=== PATIENT | male | born 1945 | race Caucasian/White ===

== ENCOUNTER 2024-06-12 16:50 | Emergency (ER) | payer MEDICARE ==
--- NOTE | 2024-06-12 18:02 | ED ---
Psych HPI - General Source: patient, family Mode of arrival: ambulatory <TwinDavid - Last Filed: 06/12/24 17:59> - General Source: patient, family, RN notes reviewed Mode of arrival: ambulatory Limitations: no limitations <Jeffery Rodriguez - Last Filed: 06/12/24 19:54> - General Chief Complaint: Psychiatric Symptoms Stated Complaint: Mental Health Time Seen by Provider: 06/12/24 17:45 - History of Present Illness Initial Comments: Quick note: This is a 78-year-old male presenting with for worsening mood change and increased agitation x 1 week. states patient has been taking Celexa for several months, stating his mood has worsened significantly over the past week. states patient has history of Alzheimer's. (David Murcia) Patient is a 78-year-old male present to the emergency department with with concerns for agitation. Patient has known dementia and Alzheimer's. Patient has been more agitated recently. Patient was started on Celexa around 4 weeks ago and it seemed to be working well for 2 to 3 weeks however symptoms have worsened for the past month. Patient denies suicidal homicidal thoughts. (Jeffery Rodriguez) - Related Data Home Medications Medication Instructions Recorded Confirmed Cetirizine HCl 10 mg PO DAILY 06/12/24 06/12/24 Citalopram Hydrobromide [CeleXA] 20 mg PO DAILY 06/12/24 06/12/24 Donepezil 23mg 23 mg PO HS 06/12/24 06/12/24 Losartan [Cozaar] 25 mg PO DAILY 06/12/24 06/12/24 Melatonin 5 mg PO HS 06/12/24 06/12/24 Memantine [Namenda] 10 mg PO BID 06/12/24 06/12/24 Metoprolol Succinate (ER) [Toprol 50 mg PO DAILY 06/12/24 06/12/24 Xl] Mirabegron [Myrbetriq] 50 mg PO DAILY 06/12/24 06/12/24 Omeprazole 20 mg PO DAILY 06/12/24 06/12/24 Spironolactone [Aldactone] 25 mg PO DAILY 06/12/24 06/12/24 Warfarin [Coumadin] 1.25 mg PO MOFR 06/12/24 06/12/24 Warfarin [Coumadin] 2.5 mg PO SUTUWETHSA 06/12/24 06/12/24 Allergies Allergy/AdvReac Type Severity Reaction Status Date / Time No Known Allergies Allergy Verified 06/12/24 18:47 Review of Systems ROS Other: All systems not noted in ROS Statement are negative. <David Murcia - Last Filed: 06/12/24 17:59> ROS Other: All systems not noted in ROS Statement are negative. Constitutional: Denies: fever Eyes: Denies: eye pain ENT: Denies: ear pain Respiratory: Denies: dyspnea Cardiovascular: Denies: chest pain Psychiatric: Reports: as per HPI. Denies: homicidal thoughts, suicidal thoughts <Jeffery Rodriguez - Last Filed: 06/12/24 19:54> ROS Statement: Those systems with pertinent positive or pertinent negative responses have been documented in the HPI. Past Medical History Past Medical History: Atrial Fibrillation, Dementia, Diabetes Mellitus, Hypert ension Additional Past Medical History / Comment(s): alzheimers, hernias, Past Surgical History: Pacemaker Additional Past Surgical History / Comment(s): open heart surgery, abdominal tansversal, 2 hernia repair, knee replacement, Past Psychological History: No Psychological Hx Reported Smoking Status: Former smoker Past Alcohol Use History: None Reported Past Drug Use History: Marijuana <David Murcia - Last Filed: 06/12/24 17:59> General Exam Limitations: no limitations <David Murcia - Last Filed: 06/12/24 17:59> Limitations: no limitations General appearance: alert, in no apparent distress Head exam: Present: normocephalic Eye exam: Present: normal appearance Neck exam: Present: normal inspection Respiratory exam: Present: normal lung sounds bilaterally Cardiovascular Exam: Present: regular rate, normal rhythm GI/Abdominal exam: Present: soft. Absent: tenderness Extremities exam: Present: normal inspection Neurological exam: Present: alert. Absent: motor sensory deficit Psychiatric exam: Present: normal affect, normal mood Skin exam: Present: normal color <Jeffery Rodriguez - Last Filed: 06/12/24 19:54> - General Exam Comments Initial Comments: Quick note physical exam: Patient awake and alert. No obvious signs of distress. (David Murcia) Course Vital Signs 06/12/24 17:09 Temperature 97.9 F Pulse Rate 90 Respiratory 18 Rate Blood Pressure 121/75 O2 Sat by Pulse 98 Oximetry Medical Decision Making - Lab Data Result diagrams: 06/12/24 18:50 06/12/24 18:50 <Jeffery Rodriguez - Last Filed: 06/12/24 19:54> - Medical Decision Making Was pt. sent in by a medical professional or institution (, [facility], REGISTERED MEDICAL TRANSCRIPTIONIST, urgent care, hospital, or snf...) When possible be specific @ -No Did you speak to anyone other than the patient for history (EMS, parent, family, police, friend...)? What history was obtained from this source @ - is present and helps provide history as patient is unable to provide this Did you review nursing and triage notes (agree or disagree)? Why? @ -I reviewed and agree with nursing and triage notes Were old charts reviewed (outside hosp., previous admission, EMS record, old EKG, old radiological studies, urgent care reports/EKG's, snf records)? Report findings @ -No old charts were reviewed Differential Diagnosis (chest pain, altered mental status, abdominal pain women, abdominal pain men, vaginal bleeding, weakness, fever, dyspnea, syncope, headache, dizziness, GI bleed, back pain, seizure, CVA, palpatations, mental health, musculoskeletal)? @ -Differential Mental Health Depression, anxiety, bipolar, psychosis, schizophrenia, borderline personality, situational depression, adjustment disorder, behavioral disorder, brain tumor, malingering, substance abuse, encephalopathy, medication reaction, dementia, hypothyroidism, degenerative neurologic disorder, lupus.... This is not meant to be all-inclusive list EKG interpreted by me (3pts min.). @ -As above X-rays interpreted by me (1pt min.). @ -None done CT interpreted by me (1pt min.). @ -None done U/S interpreted by me (1pt. min.). @ -None done What testing was considered but not performed or refused? (CT, X-rays, U/S, la bs)? Why? @ -None What meds were considered but not given or refused? Why? @ -None Did you discuss the management of the patient with other professionals (professionals i.e. , [facility], REGISTERED MEDICAL TRANSCRIPTIONIST, lab, RT, psych nurse, social worker delinquency prevention, timber grader, teacher, records officer, patient case coordinator)? Give summary @ -Case was discussed with psychiatric nurse with plans for transfer for psychiatric admission Was smoking cessation discussed for >3mins.? @ -No Was critical care preformed (if so, how long)? @ -No Were there social determinants of health that impacted care today? How? (Homelessness, low income, unemployed, alcoholism, drug addiction, transportation, low edu. Level, literacy, decrease access to med. care, usp, rehab)? @ -No Was there de-escalation of care discussed even if they declined (Discuss DNR or withdrawal of care, Hospice)? DNR status @ -No What co-morbidities impacted this encounter? (DM, HTN, Smoking, COPD, CAD, Cancer, CVA, ARF, Chemo, Hep., AIDS, mental health diagnosis, sleep apnea, m orbid obesity)? @ -History of dementia Alzheimer's Was patient admitted / discharged? Hospital course, mention meds given and route, prescriptions, significant lab abnormalities, going to OR and other pertinent info. @ -Patient presents with increased anger and agitation with history of dementia and Alzheimer's. Patient will be transferred for psychiatric care. Positive clinical certificate completed Undiagnosed new problem with uncertain prognosis? @ -No Drug Therapy requiring intensive monitoring for toxicity (Heparin, Nitro, Insulin, Cardizem)? @ -No Were any procedures done? @ -No Diagnosis/symptom? @ -Agitation, Alzheimer's Acute, or Chronic, or Acute on Chronic? @ -Acute, acute Uncomplicated (without systemic symptoms) or Complicated (systemic symptoms)? @ -Default Side effects of treatment? @ -No Exacerbation, Progression, or Severe Exacerbation? @ -No Poses a threat to life or bodily function? How? (Chest pain, USA, MD, pneumonia, PE, COPD, DKA, ARF, appy, cholecystitis, CVA, Diverticulitis, Homicidal, Suicidal, threat to staff... and all critical care pts) @ -No (Jeffery Rodriguez) - Lab Data Lab Results 06/12/24 06/12/24 Range/Units 18:50 18:50 WBC 7.0 (3.8-10.6) k/uL RBC 5.25 (4.30-5.90) m/uL Hgb 16.4 (13.0-17.5) gm/dL Hct 47.9 (39.0-53.0) % MCV 91.2 (80.0-100.0) fL MCH 31.3 (25.0-35.0) pg MCHC 34.3 (31.0-37.0) g/dL RDW 14.2 (11.5-15.5) % Plt Count 203 (150-450) k/uL MPV 8.9 Neutrophils % 62 % Lymphocytes % 28 % Monocytes % 7 % Eosinophils % 2 % Basophils % 0 % Neutrophils # 4.3 (1.3-7.7) k/uL Lymphocytes # 1.9 (1.0-4.8) k/uL Monocytes # 0.5 (0-1.0) k/uL Eosinophils # 0.1 (0-0.7) k/uL Basophils # 0.0 (0-0.2) k/uL Sodium 137 (137-145) mmol/L Potassium 4.4 (3.5-5.1) mmol/L Chloride 105 (98-107) mmol/L Carbon Dioxide 22 (22-30) mmol/L Anion Gap 10 mmol/L BUN 21 H (9-20) mg/dL Creatinine 1.05 (0.66-1.25) mg/dL Est GFR (CKD-EPI)AfAm 79 (>60 ml/min/1.73 sqM) Est GFR (CKD-EPI)NonAf 69 (>60 ml/min/1.73 sqM) Glucose 95 (74-99) mg/dL Calcium 10.2 (8.4-10.2) mg/dL Serum Alcohol <10 mg/dL Disposition <David Murcia - Last Filed: 06/12/24 17:59> Is patient prescribed a controlled substance at d/c from ED?: No Time of Disposition: 19:54 <Jeffery Rodriguez - Last Filed: 06/12/24 19:54> Clinical Impression: Agitation, Alzheimer's dementia Disposition: TRANSFER TO PSYCH HOSP/UNIT Referrals: Nonstaff,Physician [REFERRING] - 1-2 days
[2024-06-12 19:11] LABS: Basophils % (A) 0 %; Eosinophils # (A) 0.1 k/uL (0-0.7); Eosinophils % (A) 2 %; HCT 47.9 % (39.0-53.0); HGB 16.4 gm/dL (13.0-17.5); Lymphocytes # (A) 1.9 k/uL (1.0-4.8); Lymphocytes % (A) 28 %; MCH 31.3 pg (25.0-35.0); MCHC 34.3 g/dL (31.0-37.0); MCV 91.2 fL (80.0-100.0); Mean Platelet Volume 8.9; Monocytes # (A) 0.5 k/uL (0-1.0); Monocytes % (A) 7 %; Neutrophils # (A) 4.3 k/uL (1.3-7.7); Neutrophils % (A) 62 %; Platelet Count 203 k/uL (150-450); RBC 5.25 m/uL (4.30-5.90); RDW 14.2 % (11.5-15.5)
[2024-06-12 19:19] LABS: African American GFR (CKD) 79 (>60 ml/min/1.73 sqM); Alcohol <10 mg/dL; Anion Gap 10 mmol/L; Blood Urea Nitrogen 21 mg/dL (9-20); Calcium 10.2 mg/dL (8.4-10.2); Carbon Dioxide 22 mmol/L (22-30); Chloride 105 mmol/L (98-107); Glucose 95 mg/dL (74-99); Non-African American GFR(CKD) 69 (>60 ml/min/1.73 sqM); Potassium 4.4 mmol/L (3.5-5.1); Sodium 137 mmol/L (137-145)
[2024-06-12] MEDS: LORazepam 1 MG TAB PO STA (23:33)
--- NOTE | 2024-06-13 02:12 | XR ---
EXAM: XR chest 1V portable CLINICAL INDICATION:Male, 78 years old with history of mental health; [facility] COMPARISON: None. TECHNIQUE: Chest single view. FINDINGS: Left chest dual-lead pacemaker with lead tips over the RV and RA. 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 Several sternotomy wires. Cardiac silhouette is moderately enlarged suggestive of cardiomegaly. Tortuosity of the aorta. Trache a is nondisplaced. There may be mild central vascular engorgement. Mild bibasilar scarring or subsegmental atelectasis. No acute superimposed infiltrate, sizable effusi on, or pneumothorax. Osseous structures are grossly intact. Degenerative changes of the spine and david ulders. IMPRESSION: 1. Cardiomegaly with postoperative changes. 2. Possible mild pulmonary vascular congestion without overt edema or significant effusions. [facility], , 06/13/2024 2:09 AM
[2024-06-13 09:01] VITALS: TEMP 98.1
[2024-06-13 10:32] VITALS: BP 117/76; PULSE 75; RESP 20
== END 2024-06-13 10:32 ==
LOC: EC 16:50
CPT/HCPCS: 36415; 71045; 80048; 80320; 82075; 85025; 87635; 93005; 99285